=== PATIENT | male | born 1970 | race Caucasian/White ===

== ENCOUNTER 2016-07-15 01:12 | Emergency (ER) | payer MEDICAID ==
[~2016-07-15] VITALS: Ht 175.3 cm; Wt 90.0 kg
[~2016-07-15 01:12] MED LIST: ACET-2128 GT; CRANBERRY-VITAMIN C GT; DILANTIN GT; DONE5TAB3 GT; DULCOLAX SUPPOSITORY PR; FLEET ENEMA PR; FLUD0.1T GT; LACT10SO6 GT; LEVE1000 GT; MILK OF MAGNESIA GT; OCD GT; ONDA4TAB5 GT; TOPA200 GT; VERAPAMIL HCL GT
[2016-07-15 02:13] LABS: BASOPHILS % 1.2 % (0.0-2.0); EOSINOPHILS % 1.3 % (0.0-5.0); HEMATOCRIT. 44.7 % (42.0-52.0); HEMOGLOBIN. 15.2 g/dL (14.0-18.0); LYMPHOCYTES % 16.7 % (20.0-50.0); MEAN CORPUSCULAR HEMOGLOBIN 30.1 pg (28.0-32.0); MEAN CORPUSCULAR HGB CONC 33.9 g/dL (31.0-37.0); MEAN CORPUSCULAR VOLUME 88.7 fL (80.0-94.0); MEAN PLATELET VOLUME 9.1 fl (7.4-10.4); MONOCYTES % 5.4 % (2.0-8.0); NEUTROPHILS % 75.4 % (40.0-76.0); PLATELET 286 x1000/uL (130-400); RED BLOOD CELL COUNT 5.04 mill/uL (4.7-6.1); RED CELL DISTRIBUTION WIDTH 14.1 % (11.6-14.6); WHITE BLOOD COUNT 6.3 x1000/uL (4.5-11.0)
[2016-07-15 02:17] LABS: CHLORIDE 106 mEq/L (98-107); INDEX HEMOLYSI 1 (1-3); INDEX ICTERIC 1 (1-4); INDEX LIPEMIC 1 (1-3)
[2016-07-15 02:26] LABS: ALANINE AMINOTRANSFERASE 16 IU/L (13-61); ALBUMIN 3.5 g/dL (3.4-5.0); ANION GAP 14; CALCIUM 9.2 mg/dL (8.5-10.1); CARBON DIOXIDE 23 mEq/L (21-32); PHENYTOIN 4.1 ug/mL (10-20); UREA NITROGEN BLOOD 18 mg/dL (7-21); eGFR > 60 mL/min (>60)
[2016-07-15] MEDS ORDERED: PHENYTOIN SODIUM 500 MG in SODIUM CHLORIDE 0.9% 50 ML IV ONE (02:45)
[2016-07-15 03:41] LABS: GLUCOSE URINE NEGATIVE (NEGATIVE); KETONES URINE NEGATIVE (NEGATIVE); LEUKOCYTE ESTERASE URINE NEGATIVE (NEGATIVE); NITRITE URINE NEGATIVE (NEGATIVE); OCCULT BLOOD URINE 2+ (NEGATIVE); PROTEIN URINE 1+ (NEGATIVE); SPECIFIC GRAVITY URINE 1.017 (1.005-1.030); UROBILINOGEN URINE 0.2 E.U./dL (0.2-1.0)
[2016-07-15 03:46] LABS: CLARITY URINE CLEAR (CLEAR); COLOR URINE YELLOW (YELLOW)
[2016-07-15 04:02] LABS: SQUAMOUS EPITHELIAL CELL URINE FEW /lpf (RARE/1+)
[2016-07-15 04:03] LABS: BACTERIA URINE NONE SEEN; RBC URINE 15-25 /hpf (0-2); WBC URINE 0-2 /hpf (0-2)
[2016-07-15 05:05] VITALS: BP 145/99
== END 2016-07-15 07:26 ==
LOC: ER 01:12
DX: G40.909 Epilepsy, unspecified, not intractable, without status epilepticus (principal); I12.9 Hypertensive chronic kidney disease with stage 1 through stage 4 chronic kidney disease, or unspecified chronic kidney disease; N18.9 Chronic kidney disease, unspecified; F03.90 Unspecified dementia, unspecified severity, without behavioral disturbance, psychotic disturbance, mood disturbance, and anxiety; I69.391 Dysphagia following cerebral infarction; R13.10 Dysphagia, unspecified; Z93.1 Gastrostomy status; Z88.0 Allergy status to penicillin
CPT/HCPCS: 36415; 71010; 80053; 80185; 81001; 85025; 96365; 99285; C1893; J1165; J7040; Z7610

== ENCOUNTER 2016-10-04 17:13 | Inpatient (IN) | payer MEDICAID ==
[~2016-10-04] VITALS: Ht 175.3 cm; Wt 77.1 kg
[~2016-10-04 17:13] MED LIST changes: -DONE5TAB3 GT; +DONE5TAB7 GT
[2016-10-04] MEDS ORDERED: LEVETIRACETAM 1,000 MG in SODIUM CHLORIDE 0.9% 100 ML IV ONE (17:45)
[2016-10-04 19:05] LABS: CHLORIDE 112 mEq/L (98-107)
[2016-10-04 19:06] LABS: BASOPHILS % 0.4 % (0.0-2.0); EOSINOPHILS % 1.3 % (0.0-5.0); HEMATOCRIT. 47.9 % (42.0-52.0); HEMOGLOBIN. 16.2 g/dL (14.0-18.0); LYMPHOCYTES % 13.8 % (20.0-50.0); MEAN CORPUSCULAR HEMOGLOBIN 29.4 pg (28.0-32.0); MEAN CORPUSCULAR VOLUME 86.8 fL (80.0-94.0); MEAN PLATELET VOLUME 10.4 fl (7.4-10.4); MONOCYTES % 7.4 % (2.0-8.0); NEUTROPHILS % 77.1 % (40.0-76.0); PLATELET 173 x1000/uL (130-400); RED BLOOD CELL COUNT 5.52 mill/uL (4.7-6.1); RED CELL DISTRIBUTION WIDTH 14.4 % (11.6-14.6)
[2016-10-04 19:08] LABS: CLARITY URINE CLEAR (CLEAR); COLOR URINE YELLOW (YELLOW); GLUCOSE URINE NEGATIVE (NEGATIVE); KETONES URINE NEGATIVE (NEGATIVE); LEUKOCYTE ESTERASE URINE NEGATIVE (NEGATIVE); NITRITE URINE NEGATIVE (NEGATIVE); OCCULT BLOOD URINE 2+ (NEGATIVE); PROTEIN URINE 1+ (NEGATIVE); SPECIFIC GRAVITY URINE 1.029 (1.005-1.030)
[2016-10-04 19:11] LABS: CARBON DIOXIDE 25 mEq/L (21-32); ETHANOL BLOOD < 10 mg/dL
[2016-10-04 19:20] LABS: *AMPHETAMINES SCREEN URINE NEGATIVE (NEGATIVE); *BARBITURATES SCREEN URINE NEGATIVE (NEGATIVE); *BENZODIAZEPINES SCREEN URINE NEGATIVE (NEGATIVE); *COCAINE SCREEN URINE NEGATIVE (NEGATIVE); CANNABINOID URINE SCREEN NEGATIVE (NEGATIVE); METHADONE URINE SCREEN NEGATIVE (NEGATIVE); OPIATES URINE SCREEN NEGATIVE (NEGATIVE); PHENCYCLIDINE URINE SCREEN NEGATIVE (NEGATIVE)
[2016-10-04] MEDS ORDERED: ONDANSETRON HCL 4MG/2ML VIAL IV PRN (23:15)
[2016-10-04] MEDS ORDERED: LORAZEPAM 2MG/ML CPJ IV PRN (23:15)
[2016-10-04] MEDS ORDERED: DIPHENHYDRAMINE 50MG/ML VIAL IV PRN (23:15)
[2016-10-04] MEDS ORDERED: ACETAMINOPHEN 325MG TABLET PO PRN (23:15)
[2016-10-04] MEDS ORDERED: MAGNESIUM/ALUMINUM HYDROXIDE/SIMETHICONE 30ML UDC PO PRN (23:15)
[2016-10-04] MEDS ORDERED: GUAIFENESIN 200MG/10ML SUGAR FREE UDC PO PRN (23:15)
[2016-10-04] MEDS ORDERED: IPRATROPIUM/ALBUTEROL 0.5-3(2.5)MG/3ML NEB INH PRN (23:15)
[2016-10-04] MEDS ORDERED: CLONIDINE 0.1MG TABLET PO PRN (23:15)
[2016-10-04] MEDS ORDERED: HYDROCODONE/ACETAMINOPHEN 5/325MG TABLET PO PRN (23:15)
[2016-10-04] MEDS ORDERED: NA PHOS,M-B/NA PHOS,DI-BA ENEMA 118ML PR PRN (23:15)
[2016-10-04] MEDS ORDERED: DOCUSATE SODIUM 100MG CAPSULE PO PRN (23:15)
[2016-10-05] VITALS (7 sets, daily range): BP systolic 108–123; BP diastolic 69–90
[2016-10-05 00:01] LABS: CHLORIDE 113 mEq/L (98-107)
[2016-10-05 00:06] LABS: CARBON DIOXIDE 21 mEq/L (21-32)
[2016-10-05] MEDS: SODIUM CHLORIDE 0.45% 1,000 ML IV SCH ×2 (03:58→20:43)
[2016-10-05] MEDS ORDERED: LORAZEPAM 2MG/ML CPJ IV ONE (07:15)
[2016-10-05 08:52] LABS: BASOPHILS % 0.7 % (0.0-2.0); EOSINOPHILS % 0.7 % (0.0-5.0); HEMATOCRIT. 41.9 % (42.0-52.0); HEMOGLOBIN. 14.3 g/dL (14.0-18.0); LYMPHOCYTES % 11.5 % (20.0-50.0); MEAN PLATELET VOLUME 10.3 fl (7.4-10.4); MONOCYTES % 6.3 % (2.0-8.0); NEUTROPHILS % 80.8 % (40.0-76.0); PLATELET 185 x1000/uL (130-400); RED BLOOD CELL COUNT 4.93 mill/uL (4.7-6.1); RED CELL DISTRIBUTION WIDTH 14.2 % (11.6-14.6)
[2016-10-05 08:57] LABS: CHLORIDE 114 mEq/L (98-107)
[2016-10-05] MEDS ORDERED: HYDROMORPHONE HCL/PF 2MG/ML CPJ IV PRN (09:00)
[2016-10-05 09:06] LABS: CARBON DIOXIDE 22 mEq/L (21-32); HDL CHOLESTEROL 59 mg/dL (40-59); LDL CHOLESTEROL 74 mg/dL (5-100)
[2016-10-05] MEDS: ENOXAPARIN 40MG/0.4ML SYR SUBCUT SCH (11:46)
[2016-10-05] MEDS: ASPIRIN 81MG EC TABLET PO SCH (11:46)
[2016-10-06] VITALS (7 sets, daily range): BP systolic 105–156; BP diastolic 84–119
[2016-10-06] MEDS ORDERED: PHENYTOIN 100 MG/4 ML UDC GT NR (09:00)
[2016-10-06] MEDS: ASPIRIN 81MG EC TABLET PO SCH (09:14)
[2016-10-06] MEDS: LEVETIRACETAM 500MG/5ML CUP GT SCH ×2 (09:14→16:04)
[2016-10-06] MEDS: ENOXAPARIN 40MG/0.4ML SYR SUBCUT SCH (09:15)
[2016-10-06] MEDS ORDERED: LORAZEPAM 0.5MG TABLET GT PRN (09:30)
[2016-10-06] MEDS ORDERED: LORAZEPAM 2MG/ML CPJ IV PRN (11:15)
[2016-10-06] MEDS: SODIUM CHLORIDE 0.45% 1,000 ML IV SCH (12:14)
[2016-10-06] MEDS ORDERED: POTASSIUM CHLORIDE 20MEQ TABLET SR PO ONE (22:45)
[2016-10-07] VITALS: BP 122/92
[2016-10-07 04:00] VITALS: BP 119/93
[2016-10-07] MEDS: SODIUM CHLORIDE 0.45% 1,000 ML IV SCH (05:08)
[2016-10-07 06:21] LABS: BASOPHILS % 0.9 % (0.0-2.0); EOSINOPHILS % 2.9 % (0.0-5.0); HEMATOCRIT. 43.5 % (42.0-52.0); HEMOGLOBIN. 14.8 g/dL (14.0-18.0); LYMPHOCYTES % 30.4 % (20.0-50.0); MEAN CORPUSCULAR HEMOGLOBIN 29.3 pg (28.0-32.0); MEAN CORPUSCULAR VOLUME 85.9 fL (80.0-94.0); MEAN PLATELET VOLUME 10.8 fl (7.4-10.4); MONOCYTES % 7.7 % (2.0-8.0); NEUTROPHILS % 58.1 % (40.0-76.0); PLATELET 180 x1000/uL (130-400); RED BLOOD CELL COUNT 5.07 mill/uL (4.7-6.1); RED CELL DISTRIBUTION WIDTH 14.2 % (11.6-14.6)
[2016-10-07 06:39] LABS: CARBON DIOXIDE 24 mEq/L (21-32); CHLORIDE 111 mEq/L (98-107)
[2016-10-07] MEDS: ASPIRIN 81MG EC TABLET PO SCH (08:38)
[2016-10-07] MEDS: LEVETIRACETAM 500MG/5ML CUP GT SCH (08:38)
[2016-10-07] MEDS: ENOXAPARIN 40MG/0.4ML SYR SUBCUT SCH (08:38)
[2016-10-07] MEDS ORDERED: PHENYTOIN 100 MG/4 ML UDC GT SCH (09:00)
[2016-10-07 10:18] VITALS: BP 135/75
== END 2016-10-07 12:50 | DRG 53 ==
LOC: ER 17:31 → 6WST 23:06 → CANRESERV 10-05 07:07 → ENRESERV 10-05 07:07 → CANBEDREQ 10-05 09:12
PROVIDERS: ADMIT Internal Medicine; ATTEND Internal Medicine
DX: G40.909 Epilepsy, unspecified, not intractable, without status epilepticus (principal); G93.41 Metabolic encephalopathy; E46 Unspecified protein-calorie malnutrition; E87.8 Other disorders of electrolyte and fluid balance, not elsewhere classified; F03.90 Unspecified dementia, unspecified severity, without behavioral disturbance, psychotic disturbance, mood disturbance, and anxiety; E86.0 Dehydration; E78.5 Hyperlipidemia, unspecified; Y90.0 Blood alcohol level of less than 20 mg/100 ml; F10.20 Alcohol dependence, uncomplicated; I10 Essential (primary) hypertension; Z93.1 Gastrostomy status; Z74.01 Bed confinement status; Z82.49 Family history of ischemic heart disease and other diseases of the circulatory system; Z86.73 Personal history of transient ischemic attack (TIA), and cerebral infarction without residual deficits; Z91.19 Patient's noncompliance with other medical treatment and regimen; Z88.0 Allergy status to penicillin; Z68.25 Body mass index [BMI] 25.0-25.9, adult
CPT/HCPCS: 36415; 70450; 80048; 80053; 80061; 80305; 81001; 82962; 85025; 96361; 96365; 96366; 96375; 99285; C1893; G0482; J1200; J1650; J1953; J2060; J7050; A4315

== ENCOUNTER 2017-01-26 05:15 | Inpatient (IN) | payer SELFPAY ==
[2017-01-26] VITALS (39 sets, daily range): BP systolic 91–143; BP diastolic 52–99
[~2017-01-26] VITALS: Ht 162.6 cm; Wt 69.4 kg
[2017-01-26] MEDS ORDERED: SODIUM CHLORIDE 0.9% 1,000 ML IV ONE (05:31)
[2017-01-26] MEDS ORDERED: DEXTROSE 50% WATER 50ML SYRINGE IV ONE ×2 (05:37→09:15)
[2017-01-26] MEDS ORDERED: PROPOFOL 10MG/ML 100ML 100 ML IV ONE (05:45)
[2017-01-26] MEDS ORDERED: ETOMIDATE 2MG/ML 10ML VIAL IV ONE ×3 (05:45→10:00)
[2017-01-26] MEDS ORDERED: SUCCINYLCHOLINE CHLORIDE 200MG/10ML VIAL IV ONE ×3 (05:45→10:00)
[2017-01-26] MEDS ORDERED: LEVETIRACETAM 500MG PREMIX 100 ML IV ONE (05:45)
[2017-01-26 06:20] LABS: BASOPHILS % 0.6 % (0.0-2.0); EOSINOPHILS % 0.7 % (0.0-5.0); HEMATOCRIT. 43.7 % (42.0-52.0); HEMOGLOBIN. 14.5 g/dL (14.0-18.0); MEAN CORPUSCULAR HEMOGLOBIN 29.4 pg (28.0-32.0); MEAN CORPUSCULAR VOLUME 88.5 fL (80.0-94.0); MEAN PLATELET VOLUME 10.4 fl (7.4-10.4); MONOCYTES % 6.1 % (2.0-8.0); NEUTROPHILS % 83.6 % (40.0-76.0); PLATELET 157 x1000/uL (130-400); RED BLOOD CELL COUNT 4.94 mill/uL (4.7-6.1)
[2017-01-26 06:24] LABS: BG BASE EXCESS 2.7 mmol/L (-2.0-2.0); BG CARBOXYHEMOGLOBIN 0.6 % (0.5-1.5); BG DEOXYHEMOGLOBIN 0.3 % (0.0-5.0); BG FRACTION INSPIRED OXYGEN 100; BG HCO3 ACT 28.7 mmol/L (22.0-26.0); BG METHEMOGLOBIN 0.5 % (0.0-1.5); BG OXYGEN SATURATION 99.7 % (92.0-98.5); BG OXYHEMOGLOBIN 98.6 % (94.0-97.0); BG PCO2 49.1 mmHg (35.0-45.0); BG PH 7.385 (7.350-7.450); BG PO2 460.7 mmHg (75.0-100.0); BG SAMPLE SITE A-LINE; BG TOTAL HEMOGLOBIN 15.3 g/dL (12.0-18.0); BG VENT MODE MASK - NRB
[2017-01-26 06:30] LABS: PROTHROMBIN TIME 10.7 sec (9.4-11.6)
[2017-01-26 06:40] LABS: CARBON DIOXIDE 29 mEq/L (21-32); CHLORIDE 103 mEq/L (98-107); CREATINE KINASE 114 IU/L (39-308); ETHANOL BLOOD < 10 mg/dL; TROPONIN I < 0.02 ng/mL (0.00-0.04)
[2017-01-26 06:41] LABS: AMMONIA 21 uMol/L (<32)
[2017-01-26 07:02] LABS: CARBAMAZEPINE < 0.5 ug/mL (4-12); PHENOBARBITAL < 2.1 ug/mL (15.0-40.0)
[2017-01-26 07:24] LABS: CLARITY URINE CLEAR (CLEAR); COLOR URINE YELLOW (YELLOW); GLUCOSE URINE NEGATIVE (NEGATIVE); KETONES URINE 1+ (NEGATIVE); LEUKOCYTE ESTERASE URINE NEGATIVE (NEGATIVE); NITRITE URINE NEGATIVE (NEGATIVE); OCCULT BLOOD URINE 1+ (NEGATIVE); PH URINE 5.5 (4.5-8.0); PROTEIN URINE 1+ (NEGATIVE); SPECIFIC GRAVITY URINE 1.026 (1.005-1.030)
[2017-01-26 07:47] LABS: *AMPHETAMINES SCREEN URINE NEGATIVE (NEGATIVE); *BARBITURATES SCREEN URINE NEGATIVE (NEGATIVE); *BENZODIAZEPINES SCREEN URINE NEGATIVE (NEGATIVE); *COCAINE SCREEN URINE NEGATIVE (NEGATIVE); CANNABINOID URINE SCREEN NEGATIVE (NEGATIVE); METHADONE URINE SCREEN NEGATIVE (NEGATIVE); OPIATES URINE SCREEN NEGATIVE (NEGATIVE); PHENCYCLIDINE URINE SCREEN NEGATIVE (NEGATIVE)
[2017-01-26] MEDS ORDERED: LORAZEPAM 2MG/ML CPJ IV ONE ×2 (09:45→10:00)
[2017-01-26] MEDS ORDERED: MIDAZOLAM HCL 50 MG in DEXTROSE 5% WATER 40 ML IV ONE (10:15)
[2017-01-26] MEDS ORDERED: LORAZEPAM 2MG/ML CPJ ONE (10:35)
[2017-01-26] MEDS ORDERED: DEXT 5%/0.9% NACL 1,000 ML IV SCH (12:45)
[2017-01-26] MEDS: ENOXAPARIN 40MG/0.4ML SYR SUBCUT SCH (13:19)
[2017-01-26 13:34] LABS: BG BASE EXCESS 1.7 mmol/L (-2.0-2.0); BG DEOXYHEMOGLOBIN 2.1 % (0.0-5.0); BG FRACTION INSPIRED OXYGEN 50; BG HCO3 ACT 25.4 mmol/L (22.0-26.0); BG METHEMOGLOBIN 0.1 % (0.0-1.5); BG OXYGEN SATURATION 97.9 % (92.0-98.5); BG OXYHEMOGLOBIN 97.8 % (94.0-97.0); BG PCO2 37.2 mmHg (35.0-45.0); BG PH 7.453 (7.350-7.450); BG SAMPLE SITE RIGHT RADIAL; BG TIDAL VOLUME(mL) 550 mL; BG TOTAL HEMOGLOBIN 15.3 g/dL (12.0-18.0); BG VENT MODE VENT - A/C; BG VENT RATE 12 set
[2017-01-26] MEDS ORDERED: DEXTROSE 50% WATER 50ML SYRINGE IV PRN (14:45)
[2017-01-26] MEDS ORDERED: DEXTROSE 5% WATER 1,000 ML IV SCH (14:45)
[2017-01-26] MEDS: PANTOPRAZOLE SODIUM 40 MG/VIAL IV SCH (15:15)
[2017-01-26] MEDS: DEXT 10% WATER 1,000 ML IV SCH (15:15)
[2017-01-26] MEDS: IPRATROPIUM/ALBUTEROL 0.5-3(2.5)MG/3ML NEB HHN SCH ×2 (16:15→20:11)
[2017-01-26] MEDS: BLOOD SUGAR DIAGNOSTIC STRIP TEST SCH ×2 (17:29→23:11)
[2017-01-26] MEDS: INSULIN LISPRO 100 UNITS/ML SUBCUT SCH ×2 (17:29→21:00)
[2017-01-26] MEDS ORDERED: BLOOD SUGAR DIAGNOSTIC STRIP TEST SCH (18:00)
[2017-01-26] MEDS: MIDAZOLAM HCL 50 MG in DEXTROSE 5% WATER 40 ML IV PRN (19:26)
[2017-01-26] MEDS ORDERED: DILANTIN 300 MG GT SCH (21:30)
[2017-01-26] MEDS ORDERED: MEDICATION NOT ON FORMULARY EA (Levetiracetam (Keppra) 1 TAB) GT SCH (21:30)
[2017-01-26] MEDS ORDERED: TOPIRAMATE GT SCH (21:30)
[2017-01-26] MEDS: LEVETIRACETAM 500MG/5ML CUP GT SCH (22:12)
[2017-01-26] MEDS: LEVOFLOXACIN 500MG PREMIX 100 ML IV SCH (22:13)
[2017-01-26] MEDS: PHENYTOIN 100 MG/4 ML UDC GT SCH (22:13)
[2017-01-26] MEDS: TOPIRAMATE 100MG TABLET GT SCH (23:43)
[2017-01-27] VITALS (67 sets, daily range): BP systolic 96–156; BP diastolic 67–110
[2017-01-27] MEDS: IPRATROPIUM/ALBUTEROL 0.5-3(2.5)MG/3ML NEB HHN SCH ×7 (00:06→23:54)
[2017-01-27] MEDS: MIDAZOLAM HCL 50 MG in DEXTROSE 5% WATER 40 ML IV PRN ×3 (05:35→20:38)
[2017-01-27 05:41] LABS: BASOPHILS % 0.4 % (0.0-2.0); EOSINOPHILS % 0.2 % (0.0-5.0); HEMATOCRIT. 39.2 % (42.0-52.0); HEMOGLOBIN. 13.4 g/dL (14.0-18.0); LYMPHOCYTES % 12.7 % (20.0-50.0); MEAN CORPUSCULAR HEMOGLOBIN 29.3 pg (28.0-32.0); MEAN CORPUSCULAR VOLUME 85.9 fL (80.0-94.0); MEAN PLATELET VOLUME 10.4 fl (7.4-10.4); MONOCYTES % 6.2 % (2.0-8.0); NEUTROPHILS % 80.5 % (40.0-76.0); PLATELET 145 x1000/uL (130-400); RED BLOOD CELL COUNT 4.56 mill/uL (4.7-6.1); RED CELL DISTRIBUTION WIDTH 13.5 % (11.6-14.6)
[2017-01-27] MEDS: LEVETIRACETAM 500MG/5ML CUP GT SCH ×3 (05:49→21:26)
[2017-01-27] MEDS: BLOOD SUGAR DIAGNOSTIC STRIP TEST SCH ×4 (05:56→23:40)
[2017-01-27] MEDS: INSULIN LISPRO 100 UNITS/ML SUBCUT SCH ×4 (06:01→20:26)
[2017-01-27 06:25] LABS: CARBON DIOXIDE 26 mEq/L (21-32); CHLORIDE 103 mEq/L (98-107)
[2017-01-27] MEDS ORDERED: POTASSIUM CHLORIDE INJ 40 MEQ in DEXT 5% WATER 500 ML IV SCH (07:30)
[2017-01-27 07:56] LABS: BG BASE EXCESS 0.8 mmol/L (-2.0-2.0); BG CARBOXYHEMOGLOBIN 0.3 % (0.5-1.5); BG DEOXYHEMOGLOBIN 1.3 % (0.0-5.0); BG FRACTION INSPIRED OXYGEN 40; BG HCO3 ACT 24.4 mmol/L (22.0-26.0); BG METHEMOGLOBIN 0.5 % (0.0-1.5); BG OXYGEN SATURATION 98.7 % (92.0-98.5); BG OXYHEMOGLOBIN 97.9 % (94.0-97.0); BG PCO2 36.1 mmHg (35.0-45.0); BG PH 7.448 (7.350-7.450); BG PO2 136.7 mmHg (75.0-100.0); BG SAMPLE SITE RIGHT RADIAL; BG TIDAL VOLUME(mL) 550 mL; BG TOTAL HEMOGLOBIN 15.2 g/dL (12.0-18.0); BG VENT MODE VENT - A/C; BG VENT RATE 12 set
[2017-01-27] MEDS: PHENYTOIN 100 MG/4 ML UDC GT SCH ×2 (08:32→20:31)
[2017-01-27] MEDS: PANTOPRAZOLE SODIUM 40 MG/VIAL IV SCH (08:32)
[2017-01-27] MEDS: FLUDROCORTISONE ACETATE 0.1MG TABLET GT SCH (08:32)
[2017-01-27] MEDS: ENOXAPARIN 40MG/0.4ML SYR SUBCUT SCH (08:44)
[2017-01-27] MEDS: TOPIRAMATE 100MG TABLET GT SCH ×2 (08:44→20:31)
[2017-01-27] MEDS: CALCIUM CARBONATE/VITAMIN D3 500MG TABLET GT SCH (11:35)
[2017-01-27] MEDS: DEXT 10% WATER 1,000 ML IV SCH (11:35)
[2017-01-27] MEDS: DONEPEZIL HCL 5MG TABLET GT SCH (17:19)
[2017-01-27] MEDS: LEVOFLOXACIN 500MG PREMIX 100 ML IV SCH (23:09)
[2017-01-28] VITALS (47 sets, daily range): BP systolic 78–156; BP diastolic 56–107
[2017-01-28] MEDS: IPRATROPIUM/ALBUTEROL 0.5-3(2.5)MG/3ML NEB HHN SCH ×5 (03:49→20:30)
[2017-01-28 06:06] LABS: BASOPHILS % 0.4 % (0.0-2.0); EOSINOPHILS % 1.8 % (0.0-5.0); HEMATOCRIT. 40.6 % (42.0-52.0); HEMOGLOBIN. 14.1 g/dL (14.0-18.0); LYMPHOCYTES % 12.5 % (20.0-50.0); MEAN CORPUSCULAR HEMOGLOBIN 30.8 pg (28.0-32.0); MEAN CORPUSCULAR VOLUME 88.4 fL (80.0-94.0); MEAN PLATELET VOLUME 10.7 fl (7.4-10.4); MONOCYTES % 11.2 % (2.0-8.0); NEUTROPHILS % 74.1 % (40.0-76.0); PLATELET 142 x1000/uL (130-400); RED BLOOD CELL COUNT 4.59 mill/uL (4.7-6.1); RED CELL DISTRIBUTION WIDTH 14.1 % (11.6-14.6)
[2017-01-28] MEDS: LEVETIRACETAM 500MG/5ML CUP GT SCH ×3 (06:21→22:53)
[2017-01-28] MEDS: BLOOD SUGAR DIAGNOSTIC STRIP TEST SCH ×4 (06:23→23:54)
[2017-01-28] MEDS: DEXT 10% WATER 1,000 ML IV SCH (06:24)
[2017-01-28] MEDS: INSULIN LISPRO 100 UNITS/ML SUBCUT SCH ×4 (06:24→20:46)
[2017-01-28 06:41] LABS: CARBON DIOXIDE 22 mEq/L (21-32); CHLORIDE 107 mEq/L (98-107); PHOSPHORUS 2.8 mg/dL (2.5-4.9)
[2017-01-28 08:04] LABS: BG BASE EXCESS -3.6 mmol/L (-2.0-2.0); BG CARBOXYHEMOGLOBIN 0.3 % (0.5-1.5); BG DEOXYHEMOGLOBIN 0.7 % (0.0-5.0); BG HCO3 ACT 19.4 mmol/L (22.0-26.0); BG METHEMOGLOBIN 0.1 % (0.0-1.5); BG OXYGEN SATURATION 99.3 % (92.0-98.5); BG OXYHEMOGLOBIN 98.9 % (94.0-97.0); BG PCO2 29.8 mmHg (35.0-45.0); BG PH 7.431 (7.350-7.450); BG PO2 176.4 mmHg (75.0-100.0); BG SAMPLE SITE RIGHT RADIAL; BG TIDAL VOLUME(mL) 550 mL; BG TOTAL HEMOGLOBIN 14.9 g/dL (12.0-18.0); BG VENT MODE VENT - A/C; BG VENT RATE 12 set
[2017-01-28] MEDS ORDERED: POTASSIUM CHLORIDE 20MEQ/PACKET GT SCH (08:30)
[2017-01-28] MEDS: MIDAZOLAM HCL 50 MG in DEXTROSE 5% WATER 40 ML IV PRN ×3 (08:35→19:43)
[2017-01-28] MEDS: ONDANSETRON HCL 4MG/2ML VIAL IV PRN ×2 (09:07→21:34)
[2017-01-28] MEDS: PANTOPRAZOLE SODIUM 40 MG/VIAL IV SCH (09:15)
[2017-01-28] MEDS: PHENYTOIN 100 MG/4 ML UDC GT SCH ×2 (09:15→20:38)
[2017-01-28] MEDS: ENOXAPARIN 40MG/0.4ML SYR SUBCUT SCH (09:15)
[2017-01-28] MEDS: CALCIUM CARBONATE/VITAMIN D3 500MG TABLET GT SCH (09:16)
[2017-01-28] MEDS: TOPIRAMATE 100MG TABLET GT SCH ×2 (09:16→20:39)
[2017-01-28] MEDS: FLUDROCORTISONE ACETATE 0.1MG TABLET GT SCH (09:16)
[2017-01-28] MEDS ORDERED: VANCOMYCIN 1500MG in DEXTROSE 5% WATER 250ML IV SCH (11:00)
[2017-01-28] MEDS: LORAZEPAM 2MG/ML CPJ IM PRN (13:20)
[2017-01-28] MEDS: DONEPEZIL HCL 5MG TABLET GT SCH (17:00)
[2017-01-28] MEDS ORDERED: METOCLOPRAMIDE HCL 10MG/2ML VIAL IV PRN (19:15)
[2017-01-28] MEDS: VANCOMYCIN 1 G PREMIX 200 ML IV SCH (20:37)
[2017-01-28] MEDS: ACETAMINOPHEN 650MG/20.3ML UDC GT PRN (20:38)
[2017-01-28] MEDS: LEVOFLOXACIN 500MG PREMIX 100 ML IV SCH (23:48)
[2017-01-29] VITALS (93 sets, daily range): BP systolic 79–142; BP diastolic 50–103
[2017-01-29] MEDS: IPRATROPIUM/ALBUTEROL 0.5-3(2.5)MG/3ML NEB HHN SCH ×3 (00:31→20:02)
[2017-01-29] MEDS: DEXT 10% WATER 1,000 ML IV SCH ×2 (03:36→23:52)
[2017-01-29] MEDS: ONDANSETRON HCL 4MG/2ML VIAL IV PRN (04:02)
[2017-01-29] MEDS: ACETAMINOPHEN 650MG/20.3ML UDC GT PRN (04:46)
[2017-01-29] MEDS: MIDAZOLAM HCL 50 MG in DEXTROSE 5% WATER 40 ML IV PRN ×2 (05:13→12:34)
[2017-01-29] MEDS: LEVETIRACETAM 500MG/5ML CUP GT SCH ×3 (05:43→21:06)
[2017-01-29 06:12] LABS: BASOPHILS % 0.3 % (0.0-2.0); EOSINOPHILS % 1.9 % (0.0-5.0); HEMATOCRIT. 41.9 % (42.0-52.0); HEMOGLOBIN. 14.5 g/dL (14.0-18.0); LYMPHOCYTES % 8.8 % (20.0-50.0); MEAN CORPUSCULAR HEMOGLOBIN 31.1 pg (28.0-32.0); MEAN CORPUSCULAR VOLUME 89.9 fL (80.0-94.0); MEAN PLATELET VOLUME 11.1 fl (7.4-10.4); MONOCYTES % 8.3 % (2.0-8.0); NEUTROPHILS % 80.7 % (40.0-76.0); PLATELET 170 x1000/uL (130-400); RED BLOOD CELL COUNT 4.66 mill/uL (4.7-6.1); RED CELL DISTRIBUTION WIDTH 13.7 % (11.6-14.6)
[2017-01-29 06:19] LABS: CARBON DIOXIDE 20 mEq/L (21-32); CHLORIDE 107 mEq/L (98-107)
[2017-01-29] MEDS: BLOOD SUGAR DIAGNOSTIC STRIP TEST SCH ×4 (06:44→23:52)
[2017-01-29] MEDS: INSULIN LISPRO 100 UNITS/ML SUBCUT SCH ×3 (06:45→17:00)
[2017-01-29] MEDS: PHENYTOIN 100 MG/4 ML UDC GT SCH ×2 (08:29→21:06)
[2017-01-29] MEDS: CALCIUM CARBONATE/VITAMIN D3 500MG TABLET GT SCH (08:29)
[2017-01-29] MEDS: TOPIRAMATE 100MG TABLET GT SCH ×2 (08:29→21:06)
[2017-01-29] MEDS: FLUDROCORTISONE ACETATE 0.1MG TABLET GT SCH (08:29)
[2017-01-29] MEDS: PANTOPRAZOLE SODIUM 40 MG/VIAL IV SCH (08:30)
[2017-01-29] MEDS: VANCOMYCIN 1 G PREMIX 200 ML IV SCH ×2 (08:30→21:06)
[2017-01-29] MEDS: ENOXAPARIN 40MG/0.4ML SYR SUBCUT SCH (08:30)
[2017-01-29] MEDS: LORAZEPAM 2MG/ML CPJ IM PRN (09:05)
[2017-01-29] MEDS ORDERED: POTASSIUM CHLORIDE 20MEQ/PACKET PO SCH (09:45)
[2017-01-29] MEDS: METOPROLOL TARTRATE 25MG TABLET PO SCH ×2 (11:27→21:08)
[2017-01-29] MEDS: METOCLOPRAMIDE HCL 10MG/2ML VIAL IV SCH ×3 (11:52→23:52)
[2017-01-29] MEDS: DONEPEZIL HCL 5MG TABLET GT SCH (17:22)
[2017-01-29 17:45] LABS: CLARITY URINE CLOUDY (CLEAR); COLOR URINE YELLOW (YELLOW); GLUCOSE URINE NEGATIVE (NEGATIVE); KETONES URINE NEGATIVE (NEGATIVE); LEUKOCYTE ESTERASE URINE 1+ (NEGATIVE); NITRITE URINE NEGATIVE (NEGATIVE); OCCULT BLOOD URINE 3+ (NEGATIVE); PH URINE 8.5 (4.5-8.0); PROTEIN URINE 1+ (NEGATIVE); SPECIFIC GRAVITY URINE 1.018 (1.005-1.030)
[2017-01-29] MEDS: LEVOFLOXACIN 500MG PREMIX 100 ML IV SCH (23:52)
[2017-01-30] VITALS (80 sets, daily range): BP systolic 77–168; BP diastolic 51–129
[2017-01-30] MEDS: IPRATROPIUM/ALBUTEROL 0.5-3(2.5)MG/3ML NEB HHN SCH ×6 (00:27→20:39)
[2017-01-30] MEDS: LEVETIRACETAM 500MG/5ML CUP GT SCH ×3 (05:37→21:06)
[2017-01-30] MEDS: BLOOD SUGAR DIAGNOSTIC STRIP TEST SCH ×3 (05:38→17:31)
[2017-01-30] MEDS: INSULIN LISPRO 100 UNITS/ML SUBCUT SCH ×4 (05:38→17:31)
[2017-01-30] MEDS: METOCLOPRAMIDE HCL 10MG/2ML VIAL IV SCH ×3 (05:38→18:25)
[2017-01-30] MEDS: MIDAZOLAM HCL 50 MG in DEXTROSE 5% WATER 40 ML IV PRN (08:20)
[2017-01-30] MEDS: METOPROLOL TARTRATE 25MG TABLET PO SCH ×3 (09:00→21:00)
[2017-01-30] MEDS: PANTOPRAZOLE SODIUM 40 MG/VIAL IV SCH (09:58)
[2017-01-30] MEDS: CALCIUM CARBONATE/VITAMIN D3 500MG TABLET GT SCH (09:59)
[2017-01-30] MEDS: PHENYTOIN 100 MG/4 ML UDC GT SCH ×2 (09:59→21:02)
[2017-01-30] MEDS: FLUDROCORTISONE ACETATE 0.1MG TABLET GT SCH (09:59)
[2017-01-30] MEDS: TOPIRAMATE 100MG TABLET GT SCH ×2 (09:59→21:02)
[2017-01-30] MEDS: ENOXAPARIN 40MG/0.4ML SYR SUBCUT SCH (09:59)
[2017-01-30 10:11] LABS: BG BASE EXCESS -4.4 mmol/L (-2.0-2.0); BG CARBOXYHEMOGLOBIN 0.6 % (0.5-1.5); BG DEOXYHEMOGLOBIN 0.7 % (0.0-5.0); BG FRACTION INSPIRED OXYGEN 40; BG HCO3 ACT 19.6 mmol/L (22.0-26.0); BG METHEMOGLOBIN 0.7 % (0.0-1.5); BG OXYGEN SATURATION 99.3 % (92.0-98.5); BG PCO2 33.3 mmHg (35.0-45.0); BG PH 7.388 (7.350-7.450); BG SAMPLE SITE RIGHT RADIAL; BG TIDAL VOLUME(mL) 550 mL; BG TOTAL HEMOGLOBIN 14.4 g/dL (12.0-18.0); BG VENT MODE VENT - A/C; BG VENT RATE 12 set
[2017-01-30 10:22] LABS: PHOSPHORUS 2.9 mg/dL (2.5-4.9)
[2017-01-30] MEDS ORDERED: KCL 20MEQ/100ML PREMIX 100 ML IV SCH (12:00)
[2017-01-30] MEDS ORDERED: MORPHINE SULFATE 4 MG/ML CPJ (NOT FOR IM USE) IV PRN (12:45)
[2017-01-30] MEDS ORDERED: LORAZEPAM 2MG/ML CPJ IV PRN (12:45)
[2017-01-30] MEDS: THIAMINE HCL 100MG TABLET NG SCH (13:11)
[2017-01-30] MEDS: MULTIVITAMINS,THER W-MINERALS TABLET NG SCH (13:11)
[2017-01-30] MEDS: FOLIC ACID 1MG TABLET NG SCH (13:11)
[2017-01-30 15:14] LABS: BG BASE EXCESS -4.8 mmol/L (-2.0-2.0); BG CARBOXYHEMOGLOBIN 0.9 % (0.5-1.5); BG DEOXYHEMOGLOBIN 0.7 % (0.0-5.0); BG FRACTION INSPIRED OXYGEN 40; BG HCO3 ACT 20.1 mmol/L (22.0-26.0); BG METHEMOGLOBIN 0.7 % (0.0-1.5); BG OXYGEN SATURATION 99.3 % (92.0-98.5); BG OXYHEMOGLOBIN 97.7 % (94.0-97.0); BG PCO2 36.9 mmHg (35.0-45.0); BG PH 7.353 (7.350-7.450); BG PO2 151.1 mmHg (75.0-100.0); BG PRESSURE SUPPORT 8; BG SAMPLE SITE RIGHT RADIAL; BG TOTAL HEMOGLOBIN 15.7 g/dL (12.0-18.0); BG VENT MODE VENT - CPAP
[2017-01-30] MEDS: DONEPEZIL HCL 5MG TABLET GT SCH (16:59)
[2017-01-30] MEDS: DEXT 10% WATER 1,000 ML IV SCH (21:00)
[2017-01-30] MEDS ORDERED: LEVOFLOXACIN 250MG PREMIX 50 ML IV SCH (21:00)
[2017-01-30] MEDS: VANCOMYCIN 1 G PREMIX 200 ML IV SCH (21:04)
[2017-01-30] MEDS: RISPERIDONE 1MG TABLET NG SCH (21:04)
[2017-01-31] VITALS (39 sets, daily range): BP systolic 106–141; BP diastolic 54–104
[2017-01-31] MEDS: BLOOD SUGAR DIAGNOSTIC STRIP TEST SCH ×5 (00:12→23:54)
[2017-01-31] MEDS: METOCLOPRAMIDE HCL 10MG/2ML VIAL IV SCH ×2 (00:13→05:15)
[2017-01-31] MEDS: IPRATROPIUM/ALBUTEROL 0.5-3(2.5)MG/3ML NEB HHN SCH ×6 (00:16→21:25)
[2017-01-31] MEDS: LEVETIRACETAM 500MG/5ML CUP GT SCH ×3 (05:15→21:57)
[2017-01-31] MEDS: INSULIN LISPRO 100 UNITS/ML SUBCUT SCH ×5 (05:15→23:59)
[2017-01-31 06:00] LABS: EOSINOPHILS % 2.4 % (0.0-5.0); HEMATOCRIT. 39.4 % (42.0-52.0); HEMOGLOBIN. 13.5 g/dL (14.0-18.0); LYMPHOCYTES % 12.2 % (20.0-50.0); MEAN CORPUSCULAR HEMOGLOBIN 30.1 pg (28.0-32.0); MEAN CORPUSCULAR VOLUME 87.9 fL (80.0-94.0); MONOCYTES % 13.3 % (2.0-8.0); NEUTROPHILS % 71.1 % (40.0-76.0); RED BLOOD CELL COUNT 4.48 mill/uL (4.7-6.1); RED CELL DISTRIBUTION WIDTH 13.6 % (11.6-14.6)
[2017-01-31 06:59] LABS: PHOSPHORUS 2.5 mg/dL (2.5-4.9)
[2017-01-31 07:24] LABS: PLATELET 207 x1000/uL (130-400)
[2017-01-31] MEDS: PANTOPRAZOLE SODIUM 40 MG/VIAL IV SCH (08:24)
[2017-01-31] MEDS: PHENYTOIN 100 MG/4 ML UDC GT SCH ×2 (08:24→21:58)
[2017-01-31] MEDS: FLUDROCORTISONE ACETATE 0.1MG TABLET GT SCH (08:24)
[2017-01-31] MEDS: CALCIUM CARBONATE/VITAMIN D3 500MG TABLET GT SCH (08:25)
[2017-01-31] MEDS: TOPIRAMATE 100MG TABLET GT SCH ×2 (08:25→21:58)
[2017-01-31] MEDS: MULTIVITAMINS,THER W-MINERALS TABLET NG SCH (08:25)
[2017-01-31] MEDS: THIAMINE HCL 100MG TABLET NG SCH (08:25)
[2017-01-31] MEDS: ENOXAPARIN 40MG/0.4ML SYR SUBCUT SCH (08:25)
[2017-01-31] MEDS: FOLIC ACID 1MG TABLET NG SCH (08:25)
[2017-01-31] MEDS: METOPROLOL TARTRATE 25MG TABLET PO SCH ×2 (08:25→22:00)
[2017-01-31] MEDS: POTASSIUM CHLORIDE 20MEQ TABLET SR PO SCH (09:41)
[2017-01-31] MEDS: DEXT 10% WATER 1,000 ML IV SCH (15:52)
[2017-01-31] MEDS: LEVOFLOXACIN 500MG PREMIX 100 ML IV SCH (17:10)
[2017-01-31] MEDS: DONEPEZIL HCL 5MG TABLET GT SCH (17:10)
[2017-01-31] MEDS: RISPERIDONE 1MG TABLET NG SCH (21:59)
[2017-01-31] MEDS: VANCOMYCIN 1 G PREMIX 200 ML IV SCH (22:20)
[2017-02-01] VITALS (16 sets, daily range): BP systolic 98–122; BP diastolic 60–88
[2017-02-01] MEDS: IPRATROPIUM/ALBUTEROL 0.5-3(2.5)MG/3ML NEB HHN SCH ×6 (00:39→21:23)
[2017-02-01] MEDS: INSULIN LISPRO 100 UNITS/ML SUBCUT SCH ×3 (06:00→17:47)
[2017-02-01] MEDS: LEVETIRACETAM 500MG/5ML CUP GT SCH ×3 (06:22→21:11)
[2017-02-01] MEDS: BLOOD SUGAR DIAGNOSTIC STRIP TEST SCH ×3 (06:23→17:32)
[2017-02-01] MEDS: CALCIUM CARBONATE/VITAMIN D3 500MG TABLET GT SCH (10:00)
[2017-02-01] MEDS: FLUDROCORTISONE ACETATE 0.1MG TABLET GT SCH (10:00)
[2017-02-01] MEDS: TOPIRAMATE 100MG TABLET GT SCH ×2 (10:00→21:11)
[2017-02-01] MEDS: PHENYTOIN 100 MG/4 ML UDC GT SCH ×2 (10:00→21:12)
[2017-02-01] MEDS: PANTOPRAZOLE SODIUM 40 MG/VIAL IV SCH (10:01)
[2017-02-01] MEDS: THIAMINE HCL 100MG TABLET NG SCH (10:01)
[2017-02-01] MEDS: MULTIVITAMINS,THER W-MINERALS TABLET NG SCH (10:01)
[2017-02-01] MEDS: FOLIC ACID 1MG TABLET NG SCH (10:01)
[2017-02-01] MEDS: POTASSIUM CHLORIDE 20MEQ TABLET SR PO SCH (10:02)
[2017-02-01] MEDS: METOPROLOL TARTRATE 25MG TABLET PO SCH ×2 (10:02→21:11)
[2017-02-01] MEDS: ENOXAPARIN 40MG/0.4ML SYR SUBCUT SCH (10:03)
[2017-02-01] MEDS: ACETAMINOPHEN 650MG/20.3ML UDC GT PRN (11:59)
[2017-02-01] MEDS: DEXT 10% WATER 1,000 ML IV SCH (13:00)
[2017-02-01] MEDS: DONEPEZIL HCL 5MG TABLET GT SCH (17:32)
[2017-02-01] MEDS: LEVOFLOXACIN 500MG PREMIX 100 ML IV SCH (17:32)
[2017-02-01] MEDS ORDERED: METO25TA6 PO (18:18)
[2017-02-01] MEDS ORDERED: LEVO500T2 PO (18:18)
[2017-02-01] MEDS: VANCOMYCIN 1 G PREMIX 200 ML IV SCH (21:10)
[2017-02-01] MEDS: RISPERIDONE 1MG TABLET NG SCH (21:11)
== END 2017-02-01 23:17 | DRG 720 ==
LOC: ER 05:15 → 6WST 08:22 → EDBEDREQ 08:34 → ENRESERV 08:36 → EDBEDREQ 10:23 → ENRESERV 10:24 → MICUNO 11:47 → 5EST 01-31 18:30
PROVIDERS: ADMIT Family Medicine; ATTEND Family Medicine
PROC: B5181ZA Fluoroscopy of Superior Vena Cava using Low Osmolar Contrast, Guidance (ICD-10-PCS; principal; 2017-01-26)
PROC: 5A1955Z Respiratory Ventilation, Greater than 96 Consecutive Hours (ICD-10-PCS; 2017-01-26)
PROC: 02HV33Z Insertion of Infusion Device into Superior Vena Cava, Percutaneous Approach (ICD-10-PCS; 2017-01-26)
PROC: B548ZZA Ultrasonography of Superior Vena Cava, Guidance (ICD-10-PCS; 2017-01-26)
PROC: 0BH17EZ Insertion of Endotracheal Airway into Trachea, Via Natural or Artificial Opening (ICD-10-PCS; 2017-01-26)
DX: A41.9 Sepsis, unspecified organism (principal); J96.00 Acute respiratory failure, unspecified whether with hypoxia or hypercapnia; J69.0 Pneumonitis due to inhalation of food and vomit; G93.40 Encephalopathy, unspecified; G40.411 Other generalized epilepsy and epileptic syndromes, intractable, with status epilepticus; R13.10 Dysphagia, unspecified; I11.0 Hypertensive heart disease with heart failure; I50.32 Chronic diastolic (congestive) heart failure; F03.90 Unspecified dementia, unspecified severity, without behavioral disturbance, psychotic disturbance, mood disturbance, and anxiety; E11.9 Type 2 diabetes mellitus without complications; E87.6 Hypokalemia; G31.9 Degenerative disease of nervous system, unspecified; J98.11 Atelectasis; N39.0 Urinary tract infection, site not specified; Z74.01 Bed confinement status; Z82.49 Family history of ischemic heart disease and other diseases of the circulatory system; Z87.820 Personal history of traumatic brain injury; Z93.1 Gastrostomy status; Z88.0 Allergy status to penicillin; Z79.1 Long term (current) use of non-steroidal anti-inflammatories (NSAID); Z79.899 Other long term (current) drug therapy
CPT/HCPCS: 31500; 36415; 36569; 36600; 70450; 71010; 77001; 80048; 80053; 80156; 80165; 80184; 80185; 80202; 80305; 81001; 82140; 82375; 82550; 82805; 82962; 83605; 83735; 83880; 84100; 84443; 84484; 85025; 85379; 85610; 87040; 87070; 87086; 93005; 93306; 93970; 94002; 94003; 94640; 94664; 96365; 96367; 96375; 99291; C1725; C9113; G0482; J0330; J1650; J1953; J1956; J2060; J2250; J2405; J2765; J3370; J3480; J3490; J7030; J7042; J7050; J7060; J7620; A4315